=== PATIENT | male | born 2005 | race Caucasian/White ===

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

== ENCOUNTER 2024-07-10 20:45 | Emergency (ER) | payer MEDICAID, OTHER ==
[~2024-07-10] VITALS: Ht 162.6 cm; Wt 56.8 kg
[2024-07-10 20:51] VITALS: BP 101/63; TEMP 98.9; O2SAT 98
[2024-07-10 20:56] VITALS: PULSE 110; RESP 16; O2SAT 98
[2024-07-10] MEDS ORDERED: ONDANSETRON 4MG ODT PO ONE (23:15)
[2024-07-11] MEDS ORDERED: MAG355OR21 MT (04:20)
[2024-07-11] MEDS ORDERED: ONDA4TAB50 MT (04:20)
[2024-07-11] MEDS ORDERED: ACET-2708 MT (04:20)
[2024-07-11] MEDS ORDERED: IOHEXOL-300 100 ML BOTTLE ONE (06:50)
== END 2024-07-10 23:33 | disposition left against medical advice (07) ==
LOC: ER 20:45
DX: R11.2 Nausea with vomiting, unspecified (principal); R10.9 Unspecified abdominal pain; Z53.21 Procedure and treatment not carried out due to patient leaving prior to being seen by health care provider
CPT/HCPCS: Q9967

== ENCOUNTER 2024-07-11 01:12 | Emergency (ER) | payer OTHER ==
[~2024-07-11] VITALS: Ht 162.6 cm; Wt 59.0 kg
[2024-07-11 01:16] VITALS: O2SAT 98
[2024-07-11] MEDS: KETOROLAC 15MG/ML VIAL IV ONE (01:53)
[2024-07-11] MEDS: MAGNESIUM/ALUMINUM HYDROXIDE/SIMETHICONE 30ML UDC PO STA (01:53)
[2024-07-11] MEDS: PANTOPRAZOLE SODIUM 40 MG/VIAL IV STA (01:53)
[2024-07-11] MEDS: ONDANSETRON HCL 4MG/2ML INJ IV STA (01:54)
[2024-07-11] MEDS: SODIUM CHLORIDE 0.9% 1,000 ML IV ONE (01:54)
[2024-07-11 02:00] LABS: HEMATOCRIT. 48.2 % (42.0-52.0); HEMOGLOBIN. 16.5 g/dL (14.0-18.0); MEAN CORPUSCULAR HEMOGLOBIN 31.2 pg (28.0-32.0); MEAN CORPUSCULAR HGB CONC 34.3 g/dL (31.0-37.0); MEAN CORPUSCULAR VOLUME 90.9 fL (80.0-94.0); PLATELET 264 x1000/uL (130-400); RED CELL DISTRIBUTION WIDTH 13.1 % (11.6-14.6); WHITE BLOOD COUNT 9.3 x1000/uL (4.5-11.0)
[2024-07-11 02:15] LABS: CHLORIDE 102 mEq/L (98-107); POTASSIUM 4.1 mEq/L (3.5-5.1); SODIUM 137 mEq/L (136-145)
[2024-07-11 02:16] LABS: CARBON DIOXIDE 23 mEq/L (21-32); INR 1.3; PROTHROMBIN TIME 14.4 sec (9.6-11.0)
[2024-07-11 02:21] LABS: CREATININE 1.1 mg/dL (0.6-1.3); GLUCOSE 160 mg/dL (70-105)
[2024-07-11 02:22] LABS: UREA NITROGEN BLOOD 13 mg/dL (9-23)
[2024-07-11 02:23] LABS: ALANINE AMINOTRANSFERASE 64 IU/L (10-49); ALBUMIN 4.9 g/dL (3.2-4.8); ASPARTATE AMINOTRANSFERASE 53 IU/L (<34)
[2024-07-11 02:24] LABS: BILIRUBIN DIRECT 0.4 mg/dL (<=3.0); BILIRUBIN TOTAL 1.3 mg/dL (0.1-1.0); PROTEIN TOTAL 8.1 g/dL (6.0-8.3)
[2024-07-11 02:27] LABS: DIFFERENTIAL COMMENT 1; ETHANOL BLOOD < 10 mg/dL (<10)
[2024-07-11] MEDS: ONDANSETRON HCL 4MG/2ML INJ IV ONE (03:13)
[2024-07-11 04:05] VITALS: BP 110/59; PULSE 70; RESP 16; TEMP 37.05852; O2SAT 99
[2024-07-11] MEDS ORDERED: ACET-2708 MT (04:20)
[2024-07-11] MEDS ORDERED: MAG355OR21 MT (04:20)
[2024-07-11] MEDS ORDERED: ONDA4TAB50 MT (04:20)
[2024-07-11 04:37] LABS: ATYPICAL LYMPHOCYTES 1; PLATELET ESTIMATE NORMAL
== END 2024-07-11 04:15 | disposition home or self-care (01) ==
LOC: ER 01:19
DX: R10.13 Epigastric pain (principal); F12.10 Cannabis abuse, uncomplicated; J45.909 Unspecified asthma, uncomplicated; Z00.00 Encounter for general adult medical examination without abnormal findings
CPT/HCPCS: 80076; 80048; 80320; 83690; 85025; 85610; 36415; 71045; 74177; 96365; 96366; 96375; 96376; 99285; J1885; J2405; J2470; J7030; Z7610; G0480